=== PATIENT | female | born 1940 | race Caucasian/White ===

== ENCOUNTER → 2016-11-18 | Outpatient (CLI) | payer OTHER ==
[~2016-11-18] MED LIST: CLON0.5T3 PO; MULT-506 PO; [UNRECOGNIZED DRUG - REMARK]
--- NOTE | 2016-11-18 12:44 | MAMMOGRAPHY REPORT ---
BILATERAL DIGITAL SCREENING MAMMOGRAM WITH CAD: 11/18/2016 CLINICAL HISTORY: Routine screening. Patient has no complaints. TECHNIQUE: Current study was also evaluated with a Computer Aided Detection (CAD) system. Bilateral CC and MLO views were obtained. COMPARISON: Comparison is made to exams dated: 11/16/2015 mammogram, 11/12/2014 mammogram, 11/08/2013 m ammogram, 10/31/2012 mammogram, 11/30/2011 mammogram, and 01/13/2011 mammogram - [facility] enter. BREAST COMPOSITION: There are scattered areas of fibroglandular density in both breasts. FINDINGS: No suspicious masses, calcifications, or areas of architectural distortion are noted in ei ther breast. There has been no significant interval change compared to prior exams. Scattered bilater al benign-appearing calcifications are not significantly changed. IMPRESSION: ACR BI-RADS CATEGORY 2: BENIGN There is no mammographic evidence of malignancy. A 1 year screening mammogram is recommended. The pa tient will receive written notification of the results. Approximately 10% of breast cancers are not detected with mammography. A negative mammographic report should not delay biopsy if a clinically suggestive mass is present. Thi Mancia M.D. /:11/18/2016 12:22:38 Musical Instrument Mechanic: Sarai GAONA(R)(M), [facility] letter sent: Normal 1/2 BI-RADS Code: ACR BI-RADS Category 2: Benign
== END | disposition home or self-care (01) ==
LOC: C.MAMM 10:50
PROVIDERS: ATTEND Family Medicine
DX: Z12.31 Encounter for screening mammogram for malignant neoplasm of breast (principal)

== ENCOUNTER → 2017-09-20 | Outpatient (CLI) | payer OTHER ==
[~2017-09-20] MED LIST changes: -CLON0.5T3 PO; +KLN/5 PO
== END | disposition home or self-care (01) ==
LOC: C.LAB1850 13:53
PROVIDERS: ATTEND Internal Medicine Endocrinology, Diabetes & Metabolism
DX: E06.3 Autoimmune thyroiditis (principal); E03.9 Hypothyroidism, unspecified

== ENCOUNTER 2024-08-17 20:00 | Observation (INO) ==
[2024-08-17 20:48] LABS: Basophils # (auto) 0.03 K/uL (0.00-0.20); Basophils % (auto) 0.5 %; Eosinophils # (auto) 0.05 K/uL (0.00-0.50); Eosinophils % (auto) 0.8 %; Hematocrit (blood only) 33.6 % (37.0-47.0); Hemoglobin 10.9 g/dl (12.0-16.0); Immature Granulocytes # (auto) 0.02 K/uL (0.01-0.20); Immature Granulocytes % (auto) 0.3 %; Lymphocytes # (auto) 2.15 K/uL (1.20-3.40); Lymphocytes % (auto) 33.7 %; Mean Corpuscular Hemoglobin 28.2 pg (25.0-34.0); Mean Corpuscular Hgb Conc 32.4 g/dL (32.0-36.0); Mean Platelet Volume 9.8 fL (9.4-12.4); Monocytes # (auto) 0.55 K/uL (0.11-0.59); Monocytes % (auto) 8.6 %; Neutrophils # (auto) 3.58 K/uL (1.40-6.50); Neutrophils % (auto) 56.1 %; Platelet Count 165 K/uL (130-400); RDW Coefficient of Variation 14.5 % (11.5-14.5); RDW Standard Deviation 46.5 fL (36.4-46.3); Red Blood Count 3.86 M/uL (4.20-5.40); White Blood Count 6.38 K/ul (4.8-10.8)
[2024-08-17 21:10] LABS: Albumin Globulin Ratio 1.5 (0.9-2); Albumin Level 3.9 gm/dl (3.4-5.0); BUN Creatinine Ratio 24.8 (10-20); Bilirubin,Total 0.5 mg/dl (0.2-1.0); Calcium 9.7 mg/dl (8.6-10.3); Creatinine Clr Calc Pharmacy 40.4 ml/min; Globulin 2.6 gm/dl (2.5-4.0); Total Protein 6.5 gm/dl (6.0-8.3)
[2024-08-17 21:15] LABS: Troponin I High Sensitivity 8.4 pg/ml (0-14)
--- NOTE | 2024-08-17 21:18 | Emergency Department Note ---
Impression & Plan Stroke-like symptom, Heart palpitations, Hypertension ED Provider Note NAME: NAE JEFFERSON AGE: 84 SEX: F : 1940 ARRIVES VIA: Walk-In INFORMANT: Patient, ED PROVIDER(S): Jesse Sylvester DO CHIEF COMPLAINT: Palpitations patient is an 84-year-old female who presented to the emergency department for an evaluation of multiple complaints. The patient was seen in our facility last night HPI: With similar episode. No obvious source for complaints could be found. The patient described palpitations as well as not feeling well. She states she has been stuttering which and having issues with her memory. Her family members presented with her today. She states that the symptoms have been intermittent over the course the last several weeks. ROS: See above HPI for pertinent positives & negatives. A total of 10 systems reviewed and were otherwise negative. PAST MEDICAL HISTORY: See Below PAST SURGICAL HISTORY: See Below FAMILY HISTORY: See Below SOCIAL HISTORY: See Below HOME MEDICATIONS: See Below ALLERGIES: See Below VITALS: See Below PHYSICAL EXAMINATION: GENERAL: Patient is awake alert in no acute distress patient is resting comfortably and showing no signs of anxiety EYES: The conjunctivae are clear. The pupils are round and reactive. EARS, NOSE, MOUTH AND THROAT: The nose is without any evidence of any deformity. NECK: The neck is nontender and supple. RESPIRATORY: Normal respiratory effort is noted there is no evidence of wheezing rhonchi or rales CARDIOVASCULAR: Regular rate and rhythm noted there no murmurs rubs or gallops normal S1 normal S2. GASTROINTESTINAL: The abdomen is soft. Abdomen is nontender. MUSCULOSKELETAL/EXTREMITIES: There is no evidence of gross deformity full range of motion is noted in the hips and shoulders. SKIN: There is no obvious evidence of any rash. There are no petechiae, pallor or cyanosis noted. NEUROLOGIC: Patient is awake alert and oriented x3 strength is symmetric patellar reflexes are 2+ bilaterally MEDICAL DECISION MAKING: The patient is an 84-year-old female who presented to the emergency department for an evaluation. The patient was seen in our facility yesterday. She had similar episodes at that time. Her family brought her back to the emergency department this evening. They were concerned that she was having episodes that were ongoing and worsening. I discussed the patient's laboratory and radiographic studies with her. I did review the patient's previous ER visit. Given her complaints she may require further neuroimaging. She cannot get contrast and I do not feel that she has a large vessel occlusion at this time. She may require MRI/MRA of the brain. I discussed patient's condition with the on-call [facility]ist. They have agreed to evaluate the patient in the emergency department for further management and disposition. Triage Nursing notes reviewed. Prior medical records reviewed Vital Signs: reviewed and remarkable for elevated blood pressure. Differential diagnosis: Premature contractions, electrolyte abnormality, cardiac dysrhythmia, thyroid dysfunction, pulmonary embolism, infection, gastrointestinal, as well as other pathologies. ER treatment provided: See below Diagnostics interpreted by me: ECG: EKG was obtained in the emergency department. My interpretation is normal sinus rhythm at 68 bpm. There is no ectopy. Nonspecific ST abnormalities were noted. LVH was suggested by voltage criteria. This was compared to a tracing from January 09, 2024. No changes were noted. Cardiac Monitoring: An order was placed for continuous cardiac monitoring. The monitor shows a rate of 71 bpm with sinus rhythm. Laboratory studies: As stated above and show below. Imaging studies: See below. Radiographic imaging was reviewed by myself Consultation(s): I discussed this case with Dr. Roman who is on-call for the [facility]. Past Med/Surg History Problem List (Updated 08/18/24 @ 00:46 by Jesse Sylvester DO) Hypertension (Acute) Heart palpitations (Acute) Stroke-like symptom (Acute) Lightheadedness (Acute) Hypertension (Acute) Palpitation (Acute) Osteopenia Hypercalcemia Thyroid nodule Vitamin D deficiency Osteopenia Acquired autoimmune hypothyroidism Thyroid nodule Trigeminal neuralgia Stage 3 chronic kidney disease Osteopenia RYLEE and COPD overlap syndrome Neuropathy Mild intermittent asthma Hypothyroidism GERD (gastroesophageal reflux disease) ELDER (generalized anxiety disorder) Essential tremor Essential hypertension Cerebrovascular disease Medical History CAD (coronary artery disease) Vitamin D deficiency Surgical History S/P cataract surgery S/P carpal tunnel release S/P tonsillectomy S/P hysterectomy S/P cholecystectomy S/P colonoscopy S/P knee replacement Social History Smoking Status: Never smoker Hx Alcohol Use: No Preferred Language: Brazilian Feels Safe at Home: Yes Allergies Allergies Allergy/AdvReac Type Severity Reaction Status Date / Time montelukast Allergy Severe Anaphylaxis Verified 08/17/24 21:13 Iodinated Contrast Media Allergy Intermediate "RED ALL Verified 08/17/24 21:13 OVER" iodine Allergy Intermediate "RED ALL Verified 08/17/24 21:13 OVER" amoxicillin [From Augmentin] Allergy Unknown CAN'T Verified 08/17/24 21:13 REMEMBER clavulanic acid Allergy Unknown CAN'T Verified 08/17/24 21:13 [From Augmentin] REMEMBER duloxetine Allergy Unknown CAN'T Verified 08/17/24 21:13 REMEMBER gabapentin AdvReac Intermediate hair loss, Verified 08/17/24 21:13 off balance, passed out lisinopril AdvReac Intermediate Cough Verified 08/17/24 21:13 Home Meds Home Medications Medication Instructions Recorded Confirmed cholecalciferol (vitamin D3) 25 25 mcg PO DAILY 06/29/22 08/17/24 mcg (1,000 unit) capsule coenzyme Q10 100 mg capsule 100 mg PO DAILY 06/29/22 08/17/24 levothyroxine 50 mcg tablet 50 mcg PO DAILY 06/29/22 08/17/24 nitroglycerin 0.4 mg sublingual 0.4 mg sublingual Q5M PRN Chest 06/29/22 08/17/24 tablet Pain valsartan 40 mg tablet 40 mg PO DAILY 06/29/22 08/17/24 metoprolol tartrate 25 mg tablet 12.5 mg PO BID 07/04/22 08/17/24 aspirin 81 mg tablet,delayed 81 mg PO DAILY 08/03/23 08/17/24 release (Morris Low Dose Aspirin) ezetimibe 10 mg tablet 10 mg PO DAILY 12/12/23 08/17/24 mometasone 50 mcg/actuation nasal 2 spray intranasal DAILY 12/12/23 08/17/24 spray (Allergy Nasal (mometasone)) buspirone 5 mg tablet 5 mg PO BID 06/26/24 08/17/24 baclofen 10 mg tablet 10 mg PO HS neuralgia 08/17/24 08/17/24 cholecalciferol (vitamin D3) 125 125 mcg PO WK 08/17/24 08/17/24 mcg (5,000 unit) tablet (Vitamin D3) cyanocobalamin (vitamin B-12) 2,500 mcg sublingual WK 08/17/24 08/17/24 2,500 mcg sublingual tablet (Vitamin B-12) Results & Data (ED) Vital Signs Vital Signs - 24 hr 08/17/24 20:04 08/17/24 20:13 08/17/24 20:25 Temperature 36.8 C Temperature Source Temporal Artery Scan Pulse Rate 74 68 66 Pulse Rate [Apical] Pulse Rhythm [Apical] Pulse Strength [Apical] Respiratory Rate 18 22 Respiratory Effort / Characteristics Non-Labored Spontaneous Respiratory Depth Normal Respiratory Pattern Regular Blood Pressure 160/66 H Blood Pressure [Right Arm] Blood Pressure Mean 97 Blood Pressure Mean [Right Arm] Pulse Oximetry 96 95 Oxygen Delivery Method Room Air Room Air Sepsis Recent Fever Within 48 Hours No Sepsis New/Unexplained Change in Mental Status N/A Sepsis Action Taken by Nursing No Action Required 08/17/24 21:02 08/17/24 23:53 Temperature Temperature Source Pulse Rate Pulse Rate [Apical] 67 71 Pulse Rhythm [Apical] Regular Regular Pulse Strength [Apical] Normal Respiratory Rate 18 16 Respiratory Effort / Characteristics Non-Labored Spontaneous Non-Labored Spontaneous Respiratory Depth Normal Normal Respiratory Pattern Blood Pressure Blood Pressure [Right Arm] 154/71 H 153/76 H Blood Pressure Mean Blood Pressure Mean [Right Arm] 98 101 Pulse Oximetry 95 100 Oxygen Delivery Method Room Air Room Air Sepsis Recent Fever Within 48 Hours Sepsis New/Unexplained Change in Mental Status Sepsis Action Taken by Long Term Medications Current Medication List: was personally reviewed by me Laboratory Data Attestation: I reviewed the patient's lab results. 08/17/24 20:16 08/17/24 20:16 Lab Results 08/17/24 Range/Units 20:16 WBC 6.38 (4.8-10.8) K/ul RBC 3.86 L (4.20-5.40) M/uL Hgb 10.9 L (12.0-16.0) g/dl Hct 33.6 L (37.0-47.0) % MCV 87.0 (80.0-100.0) fL MCH 28.2 (25.0-34.0) pg MCHC 32.4 (32.0-36.0) g/dL RDW Std Deviation 46.5 H (36.4-46.3) fL RDW Coeff of Carla 14.5 (11.5-14.5) % Plt Count 165 (130-400) K/uL MPV 9.8 (9.4-12.4) fL Immature Gran % (Auto) 0.3 % Neut % (Auto) 56.1 % Lymph % (Auto) 33.7 % Dixie % (Auto) 8.6 % Eos % (Auto) 0.8 % Baso % (Auto) 0.5 % Neut # (Auto) 3.58 (1.40-6.50) K/uL Lymph # (Auto) 2.15 (1.20-3.40) K/uL Dixie # (Auto) 0.55 (0.11-0.59) K/uL Eos # (Auto) 0.05 (0.00-0.50) K/uL Baso # (Auto) 0.03 (0.00-0.20) K/uL Immature Gran # (Auto) 0.02 (0.01-0.20) K/uL Sodium 139 (136-145) mmol/L Potassium 4.0 (3.5-5.1) mmol/L Chloride 108 H (98-107) mmol/L Carbon Dioxide 25 (21-32) mmol/L Anion Gap 6 (3-11) BUN 25 H (6-23) mg/dl Creatinine 1.01 (0.6-1.2) mg/dl Est Cr Clr Drug Dosing 40.4 ml/min eGFR 55.24 BUN/Creatinine Ratio 24.8 H (10-20) Glucose 99 (70-99(Fasting)) mg/dl Calcium 9.7 (8.6-10.3) mg/dl Total Bilirubin 0.5 (0.2-1.0) mg/dl AST 21 (13-39) U/L ALT 16 (7-52) U/L Alkaline Phosphatase 52 (34-104) U/L Troponin I High Sens 8.4 (0-14) pg/ml Total Protein 6.5 (6.0-8.3) gm/dl Albumin 3.9 (3.4-5.0) gm/dl Globulin 2.6 (2.5-4.0) gm/dl Albumin/Globulin Ratio 1.5 (0.9-2) Imaging Data Attestation: I personally reviewed and interpreted this imaging study as follows: My Impression: CT of the brain was obtained in the emergency department. My interpretation is no intracranial hemorrhage or mass effect, final report below. Radiologist's Impression: Head CT 08/17/24 20:56 Exam(s): CT HEAD Without Contrast EXAM: CT Head Without Intravenous Contrast CLINICAL HISTORY: Reason for exam: stroke like symptoms. TECHNIQUE: Axial computed tomography images of the head/brain without intravenous contrast. CTDI is 38.31 mGy and DLP is 703.85 mGy-cm. Automated exposure control was utilized for the study. A dose lowering technique was utilized adhering to the principles of ALARA. COMPARISON: CT head on 08/16/2024 FINDINGS: Brain: No acute infarct or hemorrhage identified. No extra-axial fluid collection. No mass effect or midline shift. Scattered areas of hypoattenuation in the supratentorial white matter likely represent chronic small vessel ischemic changes. Ventricles and sulci: Prominence of the ventricles and sulci is likely secondary to cerebral volume loss. Bones: Hyperostosis frontalis interna. No bony lesion or acute fracture. Subcutaneous tissues: Normal. Sinuses: Normal. No air-fluid levels or mucosal thickening. Mastoid air cells: Normal. Orbits: Bilateral lens implants. Other: Atherosclerotic calcifications in the intracranial vasculature. IMPRESSION: 1. No acute intracranial abnormality. Further evaluation could be performed with MRI if clinically indicated. 2. Chronic small vessel ischemic changes and cerebral volume loss. Electronically signed by: Johanny Alvarado M.D. 08/17/24 22:07 PM Discharge Plan Visit Data Chief Complaint: Hypertension Stated Complaint: HIGH BP ED Provider: Jesse Sylvester Discharge Problem: Stroke-like symptom, Heart palpitations, Hypertension Patient Disposition: Being Evaluated by Hospitalist Condition: Fair Forms Stand Alone Forms: My [facility] Prescriptions Prescriptions: No Action coenzyme Q10 100 mg capsule 100 mg PO DAILY levothyroxine 50 mcg tablet 50 mcg PO DAILY nitroglycerin 0.4 mg tablet, sublingual 0.4 mg sublingual Q5M PRN (Reason: Chest Pain) Rx Instructions: do not exceed 3 doses per episode valsartan 40 mg tablet 40 mg PO DAILY cholecalciferol (vitamin D3) 25 mcg (1,000 unit) capsule 25 mcg PO DAILY metoprolol tartrate 25 mg tablet 12.5 mg PO BID aspirin [Morris Low Dose Aspirin] 81 mg tablet,delayed release (DR/EC) 81 mg PO DAILY ezetimibe 10 mg tablet 10 mg PO DAILY mometasone [Allergy Nasal (mometasone)] 50 mcg/actuation spray,non-aerosol 2 spray intranasal DAILY Rx Instructions: administer into each nostril buspirone 5 mg tablet 5 mg PO BID Rx Instructions: ON HOLD baclofen 10 mg tablet 10 mg PO HS cyanocobalamin (vitamin B-12) [Vitamin B-12] 2,500 mcg Tablet, Sublingual 2,500 mcg SUBLINGUAL WK Rx Instructions: SUNDAYS cholecalciferol (vitamin D3) [Vitamin D3] 125 mcg (5,000 unit) Tablet 125 mcg PO WK Rx Instructions: MONDAYS Referrals Referrals: Corin Rich MD [Primary Care Provider] -
--- NOTE | 2024-08-17 22:07 | CT Scan Report ---
Exam(s): CT HEAD Without Contrast EXAM: CT Head Without Intravenous Contrast CLINICAL HISTORY: Reason for exam: stroke like symptoms. TECHNIQUE: Axial computed tomography images of the head/brain without intravenous contrast. CTDI is 38.31 mGy and DLP is 703.85 mGy-cm. Automated exposure control was utilized for the study. A dose lowering technique was utilized adhering to the principles of ALARA. COMPARISON: CT head on 08/16/2024 FINDINGS: Brain: No acute infarct or hemorrhage identified. No extra-axial fluid collection. No mass effect or midline shift. Scattered areas of hypoattenuation in the supratentorial white matter likely represent chronic small vessel ischemic changes. Ventricles and sulci: Prominence of the ventricles and sulci is likely secondary to cerebral volume loss. Bones: Hyperostosis frontalis interna. No bony lesion or acute fracture. Subcutaneous tissues: Normal. Sinuses: Normal. No air-fluid levels or mucosal thickening. Mastoid air cells: Normal. Orbits: Bilateral lens implants. Other: Atherosclerotic calcifications in the intracranial vasculature. IMPRESSION: 1. No acute intracranial abnormality. Further evaluation could be performed with MRI if clinically indicated. 2. Chronic small vessel ischemic changes and cerebral volume loss. Electronically signed by: Johanny Alvarado M.D. 08/17/24 22:07 PM
--- NOTE | 2024-08-17 23:18 | History & Physical Report ---
Date of Service August 17, 2024 Assessment & Plan (1) Heart palpitations: (2) Hypertension: (3) Stroke-like symptom: (4) Lightheadedness: (5) RYLEE and COPD overlap syndrome: (6) Essential tremor: Plan #Palpitations/Lightheadedness/Shakiness/Anxiety/Anomia - pt w/ tremor at baseline per pt (chin and hand involvement) - TSH WNL - ordered orthostatics, pending - thiamine level, 7 (low) --> start thiamine, 200 mg, PO, BID for a month - buspirone discontinued 2 wks ago --> restart buspirone, 5mg, PO, BID - MRI-Brain (w/o con) routine ordered, (MRI in August, w/out findings) - encourage outpt F/U w/ Neurology #Mild anemia/Dehydration - Hgb, 10.9; BUN/Cr, 24.8 (BUN, 25/Cr, 1.01) - palpitations, shakiness, lightheadedness - Fe panel, B12, Folate ordered for AM labs --> consider supplementation after results - LR, 125 mL/hr, IV started #Hypertension - pt's BP noted to be mildly elevated upon admission, 160/66 - continue valsartan, 40mg, PO, daily (or equivalent); metoprolol tartrate, 12.5 mg, PO, BID Chronic conditions Peripheral neuropathy Trigeminal neuralgia Osteopenia - continue Ca and vit D supplements RYLEE - CPAP, HS during stay Hematuria - chronic microscopic hematuria per pt (Urologist instructed pt to tell this when admitted to hospital) Code status: Full code Disposition: Med-Tele, Obs FENGI: Heart-healthy diet/ LR, 125 mL/hr, 2L VTE Prophylaxis: Lovenox, 40 mg, subQ History of Present Illness Chief Complaint: palpitations, stuttering speech, anomia Primary Care Provider: Corin Rich MD Patient is a 84 yo F w/ a PMHx of an [place] (2019, s/p stent in LAD), peripheral neuropathy, trigeminal neuralgia, osteopenia, CKD-stage 3, RYLEE (on CPAP), mild intermittent asthma, ELDER, essential tremor (chin and hands), HTN, presenting today w/ concerns for shakiness (progressive worsening over last year), anomia (word-finding difficulty), palpitations, increasing anxiety (mostly related to recurrent dental problems resulting in multiple appts and costs). Patient does state that she's been compliant w/ all her meds, but had stopped the gabapentin for her [place] and was taking a muscle relaxant (baclofen) instead. Thinks she trialed carbamazepine and/or oxcarbazepine w/ no or little response. Patient stopped her only anti-anxiety med, buspirone, ~ 2-weeks ago at the direction of her PCP, but has been feeling increasingly anxious over last several months (w/ dental issues serving as a major stressor). Allergies Allergy/AdvReac Type Severity Reaction Status Date / Time montelukast Allergy Severe Anaphylaxis Verified 08/17/24 21:13 Iodinated Contrast Media Allergy Intermediate "RED ALL Verified 08/17/24 21:13 OVER" iodine Allergy Intermediate "RED ALL Verified 08/17/24 21:13 OVER" amoxicillin [From Augmentin] Allergy Unknown CAN'T Verified 08/17/24 21:13 REMEMBER clavulanic acid Allergy Unknown CAN'T Verified 08/17/24 21:13 [From Augmentin] REMEMBER duloxetine Allergy Unknown CAN'T Verified 08/17/24 21:13 REMEMBER gabapentin AdvReac Intermediate hair loss, Verified 08/17/24 21:13 off balance, passed out lisinopril AdvReac Intermediate Cough Verified 08/17/24 21:13 Home Medications Medication Instructions Recorded Confirmed Type cholecalciferol (vitamin D3) 25 25 mcg PO DAILY 06/29/22 08/17/24 History mcg (1,000 unit) capsule coenzyme Q10 100 mg capsule 100 mg PO DAILY 06/29/22 08/17/24 History levothyroxine 50 mcg tablet 50 mcg PO DAILY 06/29/22 08/17/24 History nitroglycerin 0.4 mg sublingual 0.4 mg sublingual Q5M PRN Chest 06/29/22 08/17/24 History tablet Pain valsartan 40 mg tablet 40 mg PO DAILY 06/29/22 08/17/24 History metoprolol tartrate 25 mg tablet 12.5 mg PO BID 07/04/22 08/17/24 History aspirin 81 mg tablet,delayed 81 mg PO DAILY 08/03/23 08/17/24 History release (Morris Low Dose Aspirin) ezetimibe 10 mg tablet 10 mg PO DAILY 12/12/23 08/17/24 History mometasone 50 mcg/actuation nasal 2 spray intranasal DAILY 12/12/23 08/17/24 History spray (Allergy Nasal (mometasone)) buspirone 5 mg tablet 5 mg PO BID 06/26/24 08/17/24 History baclofen 10 mg tablet 10 mg PO HS neuralgia 08/17/24 08/17/24 History cholecalciferol (vitamin D3) 125 125 mcg PO WK 08/17/24 08/17/24 History mcg (5,000 unit) tablet (Vitamin D3) cyanocobalamin (vitamin B-12) 2,500 mcg sublingual WK 08/17/24 08/17/24 History 2,500 mcg sublingual tablet (Vitamin B-12) Past Med/Surg History Problem List (Updated 08/18/24 @ 16:48 by Scottie Roman MD) Thiamine deficiency Hypertension (Acute) Heart palpitations (Acute) Stroke-like symptom (Acute) Lightheadedness (Acute) Hypertension (Acute) Palpitation (Acute) Osteopenia Hypercalcemia Thyroid nodule Vitamin D deficiency Osteopenia Acquired autoimmune hypothyroidism Thyroid nodule Trigeminal neuralgia Stage 3 chronic kidney disease Osteopenia RYLEE and COPD overlap syndrome Neuropathy Mild intermittent asthma Hypothyroidism GERD (gastroesophageal reflux disease) ELDER (generalized anxiety disorder) Essential tremor Essential hypertension Cerebrovascular disease Medical History (Updated 08/18/24 @ 16:48 by Scottie Roman MD) CAD (coronary artery disease) Vitamin D deficiency Surgical History S/P cataract surgery S/P carpal tunnel release S/P tonsillectomy S/P hysterectomy S/P cholecystectomy S/P colonoscopy S/P knee replacement Social History Smoking Status: Never smoker Hx Alcohol Use: No Hx Substance Use: No Preferred Language: Cuban Communication Ability: Effective Dredge Master Required: No Beliefs That Will Affect Care: None Current Living Situation: Alone Current Living Situation Comment: lives at home alone Other Information That Helps Us Care for You: No Feels Safe at Home: Yes Safety Concerns: Feels Safe At This Time Assistive Devices: Cane and Walker Review of Systems Constitutional: no fever and no chills Respiratory: no cough and no chest congestion Cardiovascular: + palpitations and + lightheadedness; no chest pain and no calf pain Gastrointestinal: + abdominal pain (mild diffuse AP); no n ausea and no vomiting Genitourinary: no dysuria, no urinary frequency, no urinary urgency and no hematuria (no jaspal hematuria) Neurologic: + tremor(s) (baseline hand and chin trem or) Hematologic / Lymphatic: + easy bruising (pt on aspirin, 81 mg, d aily) Physical Exam Constitutional: WD/WN, vitals as above Respiratory: normal respiratory effort, lungs clear to auscultation Cardiovascular: RRR, no murmur, no edema Gastrointestinal (Abdomen): Inspection/Auscultation: abdomen normal to inspection and normal bowel sounds; abdomen not distended Percussion/Palpation: + abdomen tender (diffuse tenderness) pt thinks last colonoscopy done 2 yrs ago (no polyps found) Skin: + ecchymosis Psychiatric: A+Ox3, euthymic affect Orientation: cooperative Eye Contact: good eye contact Affect: + anxious affect Mood: + anxious mood Results & Data Results & Data Vital Signs (Past 12 Hours) Vital Signs Temp Pulse Pulse Resp BP BP Pulse Ox 08/17/24 21:02 67 18 154/71 H 95 08/17/24 20:25 66 22 95 08/17/24 20:13 68 08/17/24 20:04 36.8 C 74 18 160/66 H 96 O2 Del Method 08/17/24 21:02 Room Air 08/17/24 20:25 Room Air 08/17/24 20:13 08/17/24 20:04 Room Air Diagnostic Findings Head CT 08/17/24 20:56 Exam(s): CT HEAD Without Contrast EXAM: CT Head Without Intravenous Contrast CLINICAL HISTORY: Reason for exam: stroke like symptoms. TECHNIQUE: Axial computed tomography images of the head/brain without intravenous contrast. CTDI is 38.31 mGy and DLP is 703.85 mGy-cm. Automated exposure control was utilized for the study. A dose lowering technique was utilized adhering to the principles of ALARA. COMPARISON: CT head on 08/16/2024 FINDINGS: Brain: No acute infarct or hemorrhage identified. No extra-axial fluid collection. No mass effect or midline shift. Scattered areas of hypoattenuation in the supratentorial white matter likely represent chronic small vessel ischemic changes. Ventricles and sulci: Prominence of the ventricles and sulci is likely secondary to cerebral volume loss. Bones: Hyperostosis frontalis interna. No bony lesion or acute fracture. Subcutaneous tissues: Normal. Sinuses: Normal. No air-fluid levels or mucosal thickening. Mastoid air cells: Normal. Orbits: Bilateral lens implants. Other: Atherosclerotic calcifications in the intracranial vasculature. IMPRESSION: 1. No acute intracranial abnormality. Further evaluation could be performed with MRI if clinically indicated. 2. Chronic small vessel ischemic changes and cerebral volume loss. Electronically signed by: Johanny Alvarado M.D. 08/17/24 22:07 PM Supervising Physician Co-Signing Physician Notes Attending Attestation and Admit Note: Pt seen/examined, chart reviewed, admit care plan d/w resident physician Dr Morgan Dockery. I agree w/ the robles components of his admission documentation. 84yo female with history of CAD, HTN, left-sided trigeminal neuralgia followed by [facility], RYLEE, hypothyroidism, anxiety. Presents with multiple symptoms including "quivering" of her chin region, increasing anxiety, palpitations, word-finding difficulties, and dizziness/lightheadedness (no vertigo). She had a prior ER visit for similar symptoms, underwent work-up, and was d/c to home. She has had had the quivering for some time. Did see [facility] in June but did not mention this to them during that visit. She has had extensive w/u by her PCP in [place] for her various symptoms over the last 1-2 years. In 2023 she had Lyme testing, B1 level, B12 level, and a host of other labs. B1 level was found to be low - she did take B1 supplementation for about 1-2 weeks then stopped. Did not have a f/u level. PMH/PSH/allergies/meds/sochx - reviewed VSS but BPs elevated, afebrile gen - nontoxic, pleasant, intermittent tremor of chin/facial muscles noted, speech clear, no vocal tremor; awake/alert face - no droop neck - no JVD mouth - MMM heart - RRR, s1 s2 lungs - CTA b/l abd - soft ND BS+; minimal tenderness upper abdomen to palpation ext - varicose veins, no edema, pulses b/l feet 2+ neuro - no facial droop, strength 5/5 x 4 exts, no tremors of arms; no asterixis labs reviewed including old records that are scanned in imaging reviewed EKG - my reading - NSR, no ST changes A/P: 1. tremor/"quivering" of her chin region 2. anxiety 3. dizziness/lightheadedness but no vertigo 4. palpitations 5. h/o B1 deficiency - undertreated; could this be contributing to her host of symptoms? 6. h/o left-sided trigeminal neuralgia 7. CAD, HTN -tremor of chin - etiology?? side effect of medicines? anxiety? essential tremor (but usually with essential tremor there is prominent arm symptoms which are absent) -B1 deficiency - thiamine 200mg BID x 1 month -check orthostatic BPs -IV fluids -MRI brain - r/o CVA, tumor, etc. -resume buspar 5mg BID - encouraged her to take EVERY DAY - not addicting/habit forming with minimal to no side effects -consider echo -did encourage patient to see Dr Young from [facility] shortly after discharge to discuss the tremor/"quivering" and ongoing Rx for her neuro symptomatology daughter updated at bedside Scottie Roman MD
[2024-08-18] MEDS ORDERED: POLYETHYLENE (MIRALAX) 17 GM PACK PO PRN (00:49)
[2024-08-18] MEDS ORDERED: ONDANSETRON INJ 2 MG/ML 2 ML VIAL IV PRN (00:49)
[2024-08-18] MEDS ORDERED: ACETAMINOPHEN 325 MG TAB PO PRN (00:49)
[2024-08-18] MEDS: LACTATED RINGER'S 1,000 ML IV SCH (01:30)
[2024-08-18] MEDS: THIAMINE HCL 100 MG TAB PO STA (02:57)
[2024-08-18] MEDS: LORazepam 0.5 MG TAB PO STA (02:57)
[2024-08-18] MEDS ORDERED: NITROGLYCERIN SL 0.4 MG/TAB TAB SL PRN (03:56)
--- NOTE | 2024-08-18 04:22 | Magnetic Resonance Report ---
EXAM: MR brain wo con CLINICAL HISTORY: mild confusion, anomia, mild balance issues TECHNIQUE: Multisequential and multiplanar images of the brain were submitted for review without contrast. COMPARISON: CT, 08/16/2024 19:03:06 TIE FASTENER FINDINGS: Generalized parenchymal atrophy is appreciated. Scattered foci of increased T2/FLAIR signal abnormality are identified within the bilateral periventricular and subcortical white matter, and are most commonly associated with chronic small vessel ischemic disease. No focal parenchymal lesions are seen. No intracranial hemorrhage, mass effect, midline shift, extra-axial collection, or hydrocephalus is identified. Ventricles, sulci, and basal cisterns are symmetric and normal in size and configuration. Diffusion-weighted sequences show no evidence of acute ischemic infarction. Midline structures including the pituitary gland, corpus callosum, pineal region, and brainstem are unremarkable. The craniovertebral junction is within normal limits. No calvarial abnormalities are identified. The paranasal sinuses and mastoid air cells are clear. Orbital structures are unremarkable. Appropriate flow voids are present in the visualized intracranial vessels. IMPRESSION: 1. No acute ischemia, space occupying mass, or other acute intracranial pathology is demonstrated. 2. Chronic small vessel ischemic disease. 3. Diffuse cerebral atrophy. 4. No interval changes. Electronically signed by Fernando Barron 08-18-2024 04:22 AM
[2024-08-18] MEDS: LEVOTHYROXINE SODIUM 50 MCG TABLET PO SCH (06:11)
--- NOTE | 2024-08-18 07:01 | Billing Data ---
Date of Service August 18, 2024 Coding Level of Care Code 60724 INT INP/OBS CARE
[2024-08-18 07:12] LABS: Hematocrit (blood only) 33.3 % (37.0-47.0); Hemoglobin 10.7 g/dl (12.0-16.0); Mean Corpuscular Hgb Conc 32.1 g/dL (32.0-36.0); Mean Corpuscular Volume 87.2 fL (80.0-100.0); Mean Platelet Volume 9.8 fL (9.4-12.4); Platelet Count 142 K/uL (130-400); RDW Coefficient of Variation 14.3 % (11.5-14.5); RDW Standard Deviation 45.9 fL (36.4-46.3); Red Blood Count 3.82 M/uL (4.20-5.40); White Blood Count 5.93 K/ul (4.8-10.8)
[2024-08-18 07:26] LABS: Calcium 9.4 mg/dl (8.6-10.3); Creatinine Clr Calc Pharmacy 42.8 ml/min; Potassium 3.8 mmol/L (3.5-5.1)
[2024-08-18 07:51] LABS: Folate (Folic Acid),Ser orPlas 5.91 ng/ml (>5.38)
[2024-08-18] MEDS: METOPROLOL TARTRATE 25 MG TAB PO SCH (08:33)
[2024-08-18] MEDS: EZETIMIBE 10 MG TAB PO SCH (08:33)
[2024-08-18] MEDS: ASPIRIN 81 MG ECTAB PO SCH (08:33)
[2024-08-18] MEDS: CYANOCOBALAMIN (B-12) 2,500 MCG TABLET SL SCH (08:34)
[2024-08-18] MEDS: THIAMINE HCL 100 MG TAB PO SCH (08:34)
[2024-08-18] MEDS: busPIRone 5 MG TAB PO SCH (08:35)
[2024-08-18] MEDS: ENOXAPARIN INJ 40 MG/0.4 ML SYR SQ SCH (08:35)
[2024-08-18] MEDS: VALSARTAN 80 MG TAB PO SCH (08:35)
[2024-08-18] MEDS: CHOLECALCIFEROL 25 MCG (1000 UNITS) TAB PO SCH (08:35)
[2024-08-18] MEDS: FLUTICASONE PROPIONATE NA SPR 16 GM BTL SCH (08:36)
[2024-08-18] MEDS ORDERED: NON-FORMULARY MEDICATION (Coenzyme Q10 100 mg capsule) PO SCH (09:00)
[2024-08-18 11:51] VITALS: TEMP 97.9; O2SAT 96
[2024-08-18 15:50] VITALS: BP 126/69; PULSE 67; RESP 18
--- NOTE | 2024-08-18 17:44 | Discharge Summary ---
Date of Service August 18, 2024 Admission HPI Per Admitting Provider Patient is a 84 yo F w/ a PMHx of an [place] (2020, s/p stent in LAD), peripheral neuropathy, trigeminal neuralgia, osteopenia, CKD-stage 3, RYLEE (on CPAP), mild intermittent asthma, ELDER, essential tremor (chin and hands), HTN, presenting today w/ concerns for shakiness (progressive worsening over last year), anomia (word-finding difficulty), palpitations, increasing anxiety (mostly related to recurrent dental problems resulting in multiple appts and costs). Patient does state that she's been compliant w/ all her meds, but had stopped the gabapentin for her [place] and was taking a muscle relaxant (baclofen) instead. Thinks she trialed carbamazepine and/or oxcarbazepine w/ no or little response. Patient stopped her only anti-anxiety med, buspirone, ~ 2-weeks ago at the direction of her PCP, but has been feeling increasingly anxious over last several months (w/ dental issues serving as a major stressor). Admission Exam (Per Admitting) Constitutional Constitutional: no fever and no chills Respiratory: no cough and no chest congestion Cardiovascular: + palpitations and + lightheadedness; no chest pain and no calf pain Gastrointestinal: + abdominal pain (mild diffuse AP); no n ausea and no vomiting Genitourinary: no dysuria, no urinary frequency, no urinary urgency and no hematuria (no jaspal hematuria) Neurologic: + tremor(s) (baseline hand and chin trem or) Hematologic / Lymphatic: + easy bruising (pt on aspirin, 81 mg, d aily) Physical Exam Constitutional: WD/WN, vitals as above Respiratory: normal respiratory effort, lungs clear to auscultation Cardiovascular: RRR, no murmur, no edema Gastrointestinal (Abdomen): Inspection/Auscultation: abdomen normal to inspection and normal bowel sounds; abdomen not distended Percussion/Palpation: + abdomen tender (diffuse tenderness) pt thinks last colonoscopy done 2 yrs ago (no polyps found) Skin: + ecchymosis Psychiatric: A+Ox3, euthymic affect Orientation: cooperative Eye Contact: go od eye contact Affect: + anxious affect Mood: + anxious mood Discharge Data Consultations 08/17/24 23:07 ED Decision to Admit Stat Hospital Course (1) Heart palpitations: (2) Hypertension: (3) Stroke-like symptom: (4) Lightheadedness: (5) RYLEE and COPD overlap syndrome: (6) Essential tremor: Plan #Palpitations/Lightheadedness/Shakiness/Anxiety/Anomia - pt w/ tremor at baseline per pt (chin and hand involvement) - TSH WNL - ordered orthostatics, pending - thiamine level, 7 (low) --> start thiamine, 200 mg, PO, BID for a month - buspirone discontinued 2 wks ago --> restart buspirone, 5mg, PO, BID -Encouraged lifestyle intervention for anxiety reduction #Mild anemia/Dehydration - Hgb, 10.9; BUN/Cr, 24.8 (BUN, 25/Cr, 1.01) - palpitations, shakiness, lightheadedness Lab data reviewed and shared with patient she should follow a good diet and orthostatic vitals are negative I will discharge patient home #Hypertension - pt's BP noted to be mildly elevated upon admission, 160/66 - continue valsartan, 40mg, PO, daily (or equivalent); metoprolol tartrate, 12.5 mg, PO, BID Chronic conditions Peripheral neuropathy Trigeminal neuralgia Osteopenia - continue Ca and vit D supplements RYLEE - CPAP, HS during stay Hematuria - chronic microscopic hematuria per pt (Urologist instructed pt to tell this when admitted to hospital) Code status: Full code Discharge patient home Coding Level of Care Code 22491 INP/OBS DISCH >30 MIN Diagnoses Heart palpitations R00.2 Hypertension I10 Stroke-like symptom R29.90 Lightheadedness R42 RYLEE and COPD overlap syndrome G47.33; J44.9 Essential tremor G25.0 Time Spent (min) 35
[2024-08-18] MEDS ORDERED: BACLOFEN 10 MG TAB PO SCH (21:00)
[2024-08-19] MEDS ORDERED: CHOLECALCIFEROL 125 MCG (5,000 UNITS) TAB PO SCH (09:00)
--- NOTE | 2024-08-20 15:30 | Electrocardiogram Report ---
Test Reason : Blood Pressure : */* mmHG Vent. Rate : 68 BPM Atrial Rate : 68 BPM P-R Int : 148 ms QRS Dur : 82 ms QT Int : 370 ms P-R-T Axes : 43 -32 41 degrees QTcB Int : 393 ms Normal sinus rhythm Possible Left atrial enlargement Left axis deviation Minimal voltage criteria for LVH, may be normal variant ( R in aVL ) Abnormal ECG When compared with ECG of 16-Aug-2024 19:15, (unconfirmed) No significant change was found Confirmed by Grant Rick [id number] on 08/20/2024 3:30:09 PM Referred By: REFERRED SELF Confirmed By: Grant Rick
== END 2024-08-18 18:33 | disposition home or self-care (01) ==
LOC: SUATTDRO → ED 20:00 → 2W 20:00